=== PATIENT | male | born 1960 | race African-American/Black ===

== ENCOUNTER 2020-05-08 16:43 | Inpatient (IN) | payer OTHER ==
[2020-05-08 18:08] VITALS: BMI 25.8
[2020-05-08] MEDS ORDERED: IBUPROFEN 400 MG TABLET (FP) PO PRN (22:19)
[2020-05-08] MEDS ORDERED: P-EPHED 60MG/TRIPROLIDI 2.5MG TABLET PO PRN (22:19)
[2020-05-08] MEDS ORDERED: LOPERAMIDE HCL 2 MG CAPSULE PO PRN (22:19)
[2020-05-08] MEDS ORDERED: MENTHOL/PHENOL 1 EACH UD MM PRN (22:19)
[2020-05-08] MEDS ORDERED: MAGNESIUM CITRATE 300 ML BOTTLE PO PRN (22:19)
[2020-05-08] MEDS ORDERED: ACETAMINOPHEN 325 MG TABLET (FP) PO PRN (22:19)
[2020-05-08] MEDS ORDERED: NICOTINE POLACRILEX 2 MG GUM BC PRN (22:19)
[2020-05-08] MEDS ORDERED: guaiFENesin 200 MG/10 ML 10 ML UNIT-DOSE CUPS PO PRN (22:19)
[2020-05-08] MEDS ORDERED: MAGNESIUM HYDROX 2400MG/30ML ORAL SUSPENSION 30 ML CUP PO PRN (22:19)
[2020-05-08] MEDS ORDERED: MAG HYDROX/AL HYDROX/SIMETH 30 ML UNIT-DOSE CUP PO PRN (22:19)
[2020-05-08] MEDS ORDERED: TUBERCULIN PPD 5 TU/0.1ML VIAL ID ONE (23:41)
[2020-05-08] MEDS: hydrOXYzine PAMOATE 25 MG CAPSULE (FP) PO PRN (23:44)
[2020-05-08] MEDS: SULFAMETHOXAZOLE/TRIMETHOPRIM 800MG/160MG D.S. TABLET PO SCH (23:44)
[2020-05-08] MEDS: MELATONIN 5 MG TABLETS PO SCH (23:44)
[2020-05-09] MEDS: hydrOXYzine PAMOATE 25 MG CAPSULE (FP) PO PRN (09:48)
[2020-05-09] MEDS: SULFAMETHOXAZOLE/TRIMETHOPRIM 800MG/160MG D.S. TABLET PO SCH ×2 (09:48→22:02)
[2020-05-09] MEDS: PRENATAL VITAMINS W/ FOLIC ACID TABLET (FP) PO SCH (09:49)
[2020-05-09 10:19] LABS: POTASSIUM 3.9 mmol/L (3.5-5.1)
[2020-05-09 10:22] LABS: CALCIUM 9.3 mg/dL (8.5-10.1)
[2020-05-09 10:23] LABS: ALBUMIN 3.2 g/dl (3.4-5.0)
[2020-05-09 10:27] LABS: BILIRUBIN,TOTAL 0.6 mg/dL (0.2-1)
[2020-05-09 10:33] LABS: HEMATOCRIT 35.2 % (35.4-49); HEMOGLOBIN 11.5 GM/dL (11.7-16.9); MCH 29.6 pg (25.7-33.7); MCHC 32.7 g/dl (32.0-35.9); MEAN CELL VOLUME 90.5 fl (80-96); MEAN PLT VOLUME 8.4 fl (7.5-11.1); PLATELET COUNT 251 K/MM3 (134-434); RBC 3.89 M/mm3 (4.00-5.60); RDW 13.1 % (11.9-15.9)
[2020-05-09 11:26] LABS: SICKLE CELL SCREEN NEGATIVE (NEGATIVE)
[2020-05-09] MEDS: hydrOXYzine PAMOATE 50 MG CAPSULE (FP) PO PRN ×2 (12:26→22:02)
[2020-05-09] MEDS: SERTRALINE HCL 50 MG TABLET (FP) PO SCH (12:26)
[2020-05-09] MEDS: THIAMINE HCL 100 MG TABLET (FP) PO SCH (22:02)
[2020-05-09] MEDS: risperiDONE 1 MG TABLET PO SCH (22:03)
[2020-05-09] MEDS: MELATONIN 5 MG TABLETS PO SCH (22:04)
[2020-05-10] MEDS ORDERED: cloNIDine HCL 0.1 MG TABLET PO ONE (06:54)
[2020-05-10] MEDS: SULFAMETHOXAZOLE/TRIMETHOPRIM 800MG/160MG D.S. TABLET PO SCH ×2 (09:45→21:19)
[2020-05-10] MEDS: PRENATAL VITAMINS W/ FOLIC ACID TABLET (FP) PO SCH (09:46)
[2020-05-10] MEDS: SERTRALINE HCL 50 MG TABLET (FP) PO SCH (09:46)
[2020-05-10] MEDS: ASPIRIN COATED 81 MG TABLET.EC PO SCH (14:26)
[2020-05-10] MEDS: HYDROCHLOROTHIAZIDE 25 MG TABLET (FP) PO SCH (14:26)
[2020-05-10] MEDS: hydrOXYzine PAMOATE 50 MG CAPSULE (FP) PO PRN ×2 (14:26→21:19)
[2020-05-10 16:45] LABS: EPI CELLS 25 /uL (0-25.1); HYALINE CASTS 1 /uL (0-3.1); URINE APPEARANCE CLOUDY; URINE BACTERIA 11 /uL (0-1359); URINE BILIRUBIN NEGATIVE (NEGATIVE); URINE COLOR YELLOW; URINE GLUCOSE (UA) NEGATIVE (NEGATIVE); URINE KETONE NEGATIVE (NEGATIVE); URINE LEUK ESTERASE TRACE (NEGATIVE); URINE NITRITE NEGATIVE (NEGATIVE); URINE PROTEIN NEGATIVE (NEGATIVE); URINE RBC 8 /uL (0-23.9); URINE WBC 29 /uL (0-25.8)
[2020-05-10] MEDS: METOPROLOL TARTRATE 25 MG TABLET (FP) PO SCH (21:19)
[2020-05-10] MEDS: THIAMINE HCL 100 MG TABLET (FP) PO SCH (21:19)
[2020-05-10] MEDS: risperiDONE 1 MG TABLET PO SCH (21:19)
[2020-05-10] MEDS: MELATONIN 5 MG TABLETS PO SCH (21:19)
[2020-05-10] MEDS: ATORVASTATIN CA 20 MG TABLET (FP) PO SCH (21:20)
[2020-05-11] MEDS: ASPIRIN COATED 81 MG TABLET.EC PO SCH (09:50)
[2020-05-11] MEDS: HYDROCHLOROTHIAZIDE 25 MG TABLET (FP) PO SCH (09:50)
[2020-05-11] MEDS: SERTRALINE HCL 50 MG TABLET (FP) PO SCH (09:50)
[2020-05-11] MEDS: METOPROLOL TARTRATE 25 MG TABLET (FP) PO SCH ×2 (09:50→21:37)
[2020-05-11] MEDS: SULFAMETHOXAZOLE/TRIMETHOPRIM 800MG/160MG D.S. TABLET PO SCH ×2 (09:50→21:37)
[2020-05-11] MEDS: PRENATAL VITAMINS W/ FOLIC ACID TABLET (FP) PO SCH (09:50)
[2020-05-11] MEDS: risperiDONE 1 MG TABLET PO SCH (21:37)
[2020-05-11] MEDS: MELATONIN 5 MG TABLETS PO SCH (21:37)
[2020-05-11] MEDS: ATORVASTATIN CA 20 MG TABLET (FP) PO SCH (21:37)
[2020-05-11] MEDS: THIAMINE HCL 100 MG TABLET (FP) PO SCH (21:37)
[2020-05-12] MEDS: SULFAMETHOXAZOLE/TRIMETHOPRIM 800MG/160MG D.S. TABLET PO SCH ×2 (09:41→21:17)
[2020-05-12] MEDS: METOPROLOL TARTRATE 25 MG TABLET (FP) PO SCH ×2 (09:42→21:18)
[2020-05-12] MEDS: HYDROCHLOROTHIAZIDE 25 MG TABLET (FP) PO SCH (09:42)
[2020-05-12] MEDS: PRENATAL VITAMINS W/ FOLIC ACID TABLET (FP) PO SCH (09:42)
[2020-05-12] MEDS: ASPIRIN COATED 81 MG TABLET.EC PO SCH (09:42)
[2020-05-12] MEDS: SERTRALINE HCL 50 MG TABLET (FP) PO SCH (09:42)
[2020-05-12] MEDS: risperiDONE 1 MG TABLET PO SCH (21:17)
[2020-05-12] MEDS: MELATONIN 5 MG TABLETS PO SCH (21:17)
[2020-05-12] MEDS: THIAMINE HCL 100 MG TABLET (FP) PO SCH (21:17)
[2020-05-12] MEDS: ATORVASTATIN CA 20 MG TABLET (FP) PO SCH (21:17)
[2020-05-13] MEDS: PRENATAL VITAMINS W/ FOLIC ACID TABLET (FP) PO SCH (09:37)
[2020-05-13] MEDS: METOPROLOL TARTRATE 25 MG TABLET (FP) PO SCH ×2 (09:38→22:19)
[2020-05-13] MEDS: SERTRALINE HCL 50 MG TABLET (FP) PO SCH (09:38)
[2020-05-13] MEDS: HYDROCHLOROTHIAZIDE 25 MG TABLET (FP) PO SCH (09:38)
[2020-05-13] MEDS: ASPIRIN COATED 81 MG TABLET.EC PO SCH (09:38)
[2020-05-13] MEDS: SULFAMETHOXAZOLE/TRIMETHOPRIM 800MG/160MG D.S. TABLET PO SCH ×2 (09:38→22:19)
[2020-05-13] MEDS: ATORVASTATIN CA 20 MG TABLET (FP) PO SCH (22:19)
[2020-05-13] MEDS: risperiDONE 1 MG TABLET PO SCH (22:19)
[2020-05-13] MEDS: MELATONIN 5 MG TABLETS PO SCH (22:20)
[2020-05-13] MEDS: THIAMINE HCL 100 MG TABLET (FP) PO SCH (22:20)
[2020-05-14] MEDS: ASPIRIN COATED 81 MG TABLET.EC PO SCH (09:54)
[2020-05-14] MEDS: METOPROLOL TARTRATE 25 MG TABLET (FP) PO SCH ×2 (09:54→21:21)
[2020-05-14] MEDS: HYDROCHLOROTHIAZIDE 25 MG TABLET (FP) PO SCH (09:54)
[2020-05-14] MEDS: PRENATAL VITAMINS W/ FOLIC ACID TABLET (FP) PO SCH (09:54)
[2020-05-14] MEDS: SULFAMETHOXAZOLE/TRIMETHOPRIM 800MG/160MG D.S. TABLET PO SCH ×2 (09:56→21:23)
[2020-05-14] MEDS: SERTRALINE HCL 50 MG TABLET (FP) PO SCH (09:56)
[2020-05-14] MEDS: ATORVASTATIN CA 20 MG TABLET (FP) PO SCH (21:21)
[2020-05-14] MEDS: MELATONIN 5 MG TABLETS PO SCH (21:21)
[2020-05-14] MEDS: risperiDONE 1 MG TABLET PO SCH (21:21)
[2020-05-14] MEDS: THIAMINE HCL 100 MG TABLET (FP) PO SCH (21:21)
[2020-05-15] MEDS: ASPIRIN COATED 81 MG TABLET.EC PO SCH (09:52)
[2020-05-15] MEDS: PRENATAL VITAMINS W/ FOLIC ACID TABLET (FP) PO SCH (09:52)
[2020-05-15] MEDS: SULFAMETHOXAZOLE/TRIMETHOPRIM 800MG/160MG D.S. TABLET PO SCH ×2 (09:52→21:48)
[2020-05-15] MEDS: HYDROCHLOROTHIAZIDE 25 MG TABLET (FP) PO SCH (09:52)
[2020-05-15] MEDS: METOPROLOL TARTRATE 25 MG TABLET (FP) PO SCH ×2 (09:53→21:48)
[2020-05-15] MEDS: SERTRALINE HCL 50 MG TABLET (FP) PO SCH (09:53)
[2020-05-15] MEDS ORDERED: NAPROXEN 500 MG TABLET PO PRN (15:35)
[2020-05-15] MEDS: hydrOXYzine PAMOATE 50 MG CAPSULE (FP) PO PRN (21:48)
[2020-05-15] MEDS: ATORVASTATIN CA 20 MG TABLET (FP) PO SCH (21:48)
[2020-05-15] MEDS: MELATONIN 5 MG TABLETS PO SCH (21:48)
[2020-05-15] MEDS: risperiDONE 1 MG TABLET PO SCH (21:48)
[2020-05-15] MEDS: THIAMINE HCL 100 MG TABLET (FP) PO SCH (21:48)
[2020-05-15] MEDS: METHOCARBAMOL 500 MG TABLET PO PRN (21:48)
[2020-05-16] MEDS: SULFAMETHOXAZOLE/TRIMETHOPRIM 800MG/160MG D.S. TABLET PO SCH ×2 (09:34→21:35)
[2020-05-16] MEDS: HYDROCHLOROTHIAZIDE 25 MG TABLET (FP) PO SCH (09:34)
[2020-05-16] MEDS: ASPIRIN COATED 81 MG TABLET.EC PO SCH (09:34)
[2020-05-16] MEDS: METOPROLOL TARTRATE 25 MG TABLET (FP) PO SCH ×2 (09:35→21:36)
[2020-05-16] MEDS: PRENATAL VITAMINS W/ FOLIC ACID TABLET (FP) PO SCH (09:35)
[2020-05-16] MEDS: SERTRALINE HCL 50 MG TABLET (FP) PO SCH (09:35)
[2020-05-16] MEDS: risperiDONE 1 MG TABLET PO SCH (21:35)
[2020-05-16] MEDS: ATORVASTATIN CA 20 MG TABLET (FP) PO SCH (21:35)
[2020-05-16] MEDS: THIAMINE HCL 100 MG TABLET (FP) PO SCH (21:35)
[2020-05-16] MEDS: MELATONIN 5 MG TABLETS PO SCH (21:37)
[2020-05-17] MEDS: HYDROCHLOROTHIAZIDE 25 MG TABLET (FP) PO SCH (09:37)
[2020-05-17] MEDS: SULFAMETHOXAZOLE/TRIMETHOPRIM 800MG/160MG D.S. TABLET PO SCH ×2 (09:37→21:37)
[2020-05-17] MEDS: PRENATAL VITAMINS W/ FOLIC ACID TABLET (FP) PO SCH (09:37)
[2020-05-17] MEDS: ASPIRIN COATED 81 MG TABLET.EC PO SCH (09:37)
[2020-05-17] MEDS: SERTRALINE HCL 50 MG TABLET (FP) PO SCH (09:37)
[2020-05-17] MEDS: METOPROLOL TARTRATE 25 MG TABLET (FP) PO SCH ×2 (09:37→21:50)
[2020-05-17] MEDS: hydrOXYzine PAMOATE 50 MG CAPSULE (FP) PO PRN (21:37)
[2020-05-17] MEDS: ATORVASTATIN CA 20 MG TABLET (FP) PO SCH (21:37)
[2020-05-17] MEDS: MELATONIN 5 MG TABLETS PO SCH (21:37)
[2020-05-17] MEDS: risperiDONE 1 MG TABLET PO SCH (21:37)
[2020-05-17] MEDS: THIAMINE HCL 100 MG TABLET (FP) PO SCH (21:38)
[2020-05-18] MEDS: HYDROCHLOROTHIAZIDE 25 MG TABLET (FP) PO SCH (09:50)
[2020-05-18] MEDS: PRENATAL VITAMINS W/ FOLIC ACID TABLET (FP) PO SCH (09:50)
[2020-05-18] MEDS: ASPIRIN COATED 81 MG TABLET.EC PO SCH (09:50)
[2020-05-18] MEDS: METOPROLOL TARTRATE 25 MG TABLET (FP) PO SCH ×2 (09:50→21:57)
[2020-05-18] MEDS: SERTRALINE HCL 50 MG TABLET (FP) PO SCH (09:50)
[2020-05-18] MEDS: risperiDONE 1 MG TABLET PO SCH (21:57)
[2020-05-18] MEDS: ATORVASTATIN CA 20 MG TABLET (FP) PO SCH (21:57)
[2020-05-18] MEDS: THIAMINE HCL 100 MG TABLET (FP) PO SCH (21:57)
[2020-05-18] MEDS: hydrOXYzine PAMOATE 50 MG CAPSULE (FP) PO PRN (21:57)
[2020-05-18] MEDS: MELATONIN 5 MG TABLETS PO SCH (21:57)
[2020-05-18] MEDS: METHOCARBAMOL 500 MG TABLET PO PRN (21:58)
[2020-05-19] MEDS: HYDROCHLOROTHIAZIDE 25 MG TABLET (FP) PO SCH (09:41)
[2020-05-19] MEDS: METOPROLOL TARTRATE 25 MG TABLET (FP) PO SCH ×2 (09:41→21:36)
[2020-05-19] MEDS: SERTRALINE HCL 50 MG TABLET (FP) PO SCH (09:41)
[2020-05-19] MEDS: ASPIRIN COATED 81 MG TABLET.EC PO SCH (09:41)
[2020-05-19] MEDS: PRENATAL VITAMINS W/ FOLIC ACID TABLET (FP) PO SCH (09:41)
[2020-05-19] MEDS: ATORVASTATIN CA 20 MG TABLET (FP) PO SCH (21:35)
[2020-05-19] MEDS: risperiDONE 1 MG TABLET PO SCH (21:35)
[2020-05-19] MEDS: THIAMINE HCL 100 MG TABLET (FP) PO SCH (21:35)
[2020-05-19] MEDS: MELATONIN 5 MG TABLETS PO SCH (21:35)
[2020-05-19] MEDS: hydrOXYzine PAMOATE 50 MG CAPSULE (FP) PO PRN (21:37)
[2020-05-20] MEDS: ASPIRIN COATED 81 MG TABLET.EC PO SCH (09:44)
[2020-05-20] MEDS: PRENATAL VITAMINS W/ FOLIC ACID TABLET (FP) PO SCH (09:45)
[2020-05-20] MEDS: METOPROLOL TARTRATE 25 MG TABLET (FP) PO SCH ×2 (09:45→21:32)
[2020-05-20] MEDS: HYDROCHLOROTHIAZIDE 25 MG TABLET (FP) PO SCH (09:45)
[2020-05-20] MEDS: SERTRALINE HCL 50 MG TABLET (FP) PO SCH (09:45)
[2020-05-20] MEDS: MELATONIN 5 MG TABLETS PO SCH (21:32)
[2020-05-20] MEDS: ATORVASTATIN CA 20 MG TABLET (FP) PO SCH (21:32)
[2020-05-20] MEDS: METHOCARBAMOL 500 MG TABLET PO PRN (21:32)
[2020-05-20] MEDS: hydrOXYzine PAMOATE 50 MG CAPSULE (FP) PO PRN (21:32)
[2020-05-20] MEDS: risperiDONE 1 MG TABLET PO SCH (21:32)
[2020-05-20] MEDS: THIAMINE HCL 100 MG TABLET (FP) PO SCH (21:32)
[2020-05-21 07:30] VITALS: TEMP 97.3
[2020-05-21] MEDS: METOPROLOL TARTRATE 25 MG TABLET (FP) PO SCH ×2 (09:39→21:16)
[2020-05-21] MEDS: PRENATAL VITAMINS W/ FOLIC ACID TABLET (FP) PO SCH (09:39)
[2020-05-21] MEDS: HYDROCHLOROTHIAZIDE 25 MG TABLET (FP) PO SCH (09:39)
[2020-05-21] MEDS: ASPIRIN COATED 81 MG TABLET.EC PO SCH (09:39)
[2020-05-21] MEDS: SERTRALINE HCL 50 MG TABLET (FP) PO SCH (09:39)
[2020-05-21] MEDS: MELATONIN 5 MG TABLETS PO SCH (21:16)
[2020-05-21] MEDS: THIAMINE HCL 100 MG TABLET (FP) PO SCH (21:16)
[2020-05-21] MEDS: risperiDONE 1 MG TABLET PO SCH (21:16)
[2020-05-21] MEDS: hydrOXYzine PAMOATE 50 MG CAPSULE (FP) PO PRN (21:16)
[2020-05-21] MEDS: ATORVASTATIN CA 20 MG TABLET (FP) PO SCH (21:16)
[2020-05-22 06:44] VITALS: BP 161/104; PULSE 57
[2020-05-22] MEDS: METOPROLOL TARTRATE 25 MG TABLET (FP) PO SCH (09:51)
[2020-05-22] MEDS: HYDROCHLOROTHIAZIDE 25 MG TABLET (FP) PO SCH (09:52)
[2020-05-22] MEDS: SERTRALINE HCL 50 MG TABLET (FP) PO SCH (09:52)
[2020-05-22] MEDS: PRENATAL VITAMINS W/ FOLIC ACID TABLET (FP) PO SCH (09:52)
[2020-05-22] MEDS: ASPIRIN COATED 81 MG TABLET.EC PO SCH (09:52)
== END 2020-05-22 10:00 | disposition home or self-care (01) | DRG 772 ==
LOC: YASAS 16:43 → Y5N 22:39
PROVIDERS: ADMIT Allergy & Immunology; ATTEND Allergy & Immunology
PROC: HZ42ZZZ Group Counseling for Substance Abuse Treatment, Cognitive-Behavioral (ICD-10-PCS; principal; 2020-05-08)
DX: F10.20 Alcohol dependence, uncomplicated (principal); F14.20 Cocaine dependence, uncomplicated; F16.10 Hallucinogen abuse, uncomplicated; F12.20 Cannabis dependence, uncomplicated; F17.210 Nicotine dependence, cigarettes, uncomplicated; F33.1 Major depressive disorder, recurrent, moderate; F19.280 Other psychoactive substance dependence with psychoactive substance-induced anxiety disorder; F19.282 Other psychoactive substance dependence with psychoactive substance-induced sleep disorder; F19.24 Other psychoactive substance dependence with psychoactive substance-induced mood disorder; F41.9 Anxiety disorder, unspecified; F43.10 Post-traumatic stress disorder, unspecified; I10 Essential (primary) hypertension; E78.5 Hyperlipidemia, unspecified; M47.819 Spondylosis without myelopathy or radiculopathy, site unspecified; M54.5 Low back pain; G89.29 Other chronic pain; Z62.810 Personal history of physical and sexual abuse in childhood
CPT/HCPCS: 36415; 71046-TC-FY; 80053; 81003; 82962; 85027; 85660; 86780; 93005; 93010; C9803; J0735; J2794; U0003

== ENCOUNTER 2021-04-25 21:59 | Inpatient (IN) | payer OTHER ==
[2021-04-25 22:49] VITALS: BMI 24.7
[2021-04-25] MEDS ORDERED: ACETAMINOPHEN 325 MG TABLET (FP) PO PRN ×2 (23:36)
[2021-04-25] MEDS ORDERED: MAGNESIUM HYDROX 2400MG/30ML ORAL SUSPENSION 30 ML CUP PO PRN (23:36)
[2021-04-25] MEDS ORDERED: DICYCLOMINE HCL 10 MG CAPSULE PO PRN (23:36)
[2021-04-25] MEDS ORDERED: BISMUTH SUBSALICYLATE 524 MG/30 ML PO PRN (23:36)
[2021-04-25] MEDS ORDERED: MENTHOL/PHENOL 1 EACH UD MM PRN (23:36)
[2021-04-25] MEDS ORDERED: MAGNESIUM CITRATE 300 ML BOTTLE PO PRN (23:36)
[2021-04-25] MEDS ORDERED: IBUPROFEN 400 MG TABLET (FP) PO PRN (23:36)
[2021-04-25] MEDS ORDERED: MAG HYDROX/AL HYDROX/SIMETH 30 ML UNIT-DOSE CUP PO PRN (23:36)
[2021-04-25] MEDS ORDERED: P-EPHED 60MG/TRIPROLIDI 2.5MG TABLET PO PRN (23:36)
[2021-04-25] MEDS ORDERED: ONDANSETRON *ODT* 4 MG TABLET SL PRN (23:36)
[2021-04-25] MEDS ORDERED: guaiFENesin 200 MG/10 ML 10 ML UNIT-DOSE CUPS PO PRN (23:36)
[2021-04-25] MEDS ORDERED: METHOCARBAMOL 500 MG TABLET PO PRN (23:36)
[2021-04-25] MEDS ORDERED: NICOTINE 10 MG CARTRIDGE (INHALER) IH PRN (23:36)
[2021-04-26] MEDS ORDERED: MELATONIN 5 MG TABLETS PO ONE (00:35)
[2021-04-26] MEDS ORDERED: diazePAM 5 MG TABLET PO PRN (09:01)
[2021-04-26] MEDS ORDERED: amLODIPine BESYLATE 5 MG TABLET (FP) ONE (10:20)
[2021-04-26] MEDS ORDERED: diazePAM 5 MG TABLET ONE (10:20)
[2021-04-26] MEDS: METOPROLOL TARTRATE 25 MG TABLET (FP) PO SCH ×2 (10:27→22:24)
[2021-04-26] MEDS: PANTOPRAZOLE 20 MG TABLET PO SCH (10:27)
[2021-04-26] MEDS: HYDROCHLOROTHIAZIDE 25 MG TABLET (FP) PO SCH (10:27)
[2021-04-26] MEDS: amLODIPine BESYLATE 5 MG TABLET (FP) PO SCH (10:27)
[2021-04-26] MEDS: ASPIRIN COATED 81 MG TABLET.EC PO SCH (10:27)
[2021-04-26] MEDS: PRENATAL VITAMINS W/ FOLIC ACID TABLET (FP) PO SCH (10:27)
[2021-04-26] MEDS: diazePAM 5 MG TABLET PO SCH ×3 (10:31→22:25)
[2021-04-26 11:15] LABS: HEMATOCRIT 36.2 % (35.4-49); HEMOGLOBIN 12.2 GM/dL (11.7-16.9); MCH 30.4 pg (25.7-33.7); MCHC 33.7 g/dl (32.0-35.9); MEAN PLT VOLUME 8.2 fl (7.5-11.1); PLATELET COUNT 218 10^3/uL (134-434); RBC 4.02 M/mm3 (4.00-5.60); RDW 13.7 % (11.9-15.9); WHITE BLOOD COUNT 4.3 K/mm3 (4.0-10.0)
[2021-04-26 11:16] LABS: ALBUMIN 3.2 g/dl (3.4-5.0); BLOOD UREA NITROGEN 23.6 mg/dL (7-18)
[2021-04-26 11:19] LABS: CREATININE 1.3 mg/dL (0.55-1.3)
[2021-04-26 11:21] LABS: BILIRUBIN,TOTAL 0.9 mg/dL (0.2-1); TOT PROT 6.4 g/dl (6.4-8.2)
[2021-04-26] MEDS: NICOTINE 14 MG/24 HOURS TOPICAL PATCH TD SCH (11:54)
[2021-04-26] MEDS: hydrOXYzine PAMOATE 25 MG CAPSULE (FP) PO PRN (22:24)
[2021-04-26] MEDS: risperiDONE 1 MG TABLET PO SCH (22:24)
[2021-04-26] MEDS: ATORVASTATIN CA 20 MG TABLET (FP) PO SCH (22:24)
[2021-04-26] MEDS: THIAMINE HCL 100 MG TABLET (FP) PO SCH (22:24)
[2021-04-26] MEDS: MELATONIN 5 MG TABLETS PO SCH (22:24)
[2021-04-27] MEDS: SUCRALFATE 1 GM TABLET (FP) PO SCH ×5 (00:15→22:11)
[2021-04-27] MEDS: diazePAM 5 MG TABLET PO SCH ×4 (07:27→22:11)
[2021-04-27] MEDS: amLODIPine BESYLATE 5 MG TABLET (FP) PO SCH (10:53)
[2021-04-27] MEDS: PRENATAL VITAMINS W/ FOLIC ACID TABLET (FP) PO SCH (10:53)
[2021-04-27] MEDS: METOPROLOL TARTRATE 25 MG TABLET (FP) PO SCH ×2 (10:53→22:11)
[2021-04-27] MEDS: PANTOPRAZOLE 20 MG TABLET PO SCH (10:53)
[2021-04-27] MEDS: HYDROCHLOROTHIAZIDE 25 MG TABLET (FP) PO SCH (10:53)
[2021-04-27] MEDS: ASPIRIN COATED 81 MG TABLET.EC PO SCH (10:53)
[2021-04-27] MEDS: NICOTINE 14 MG/24 HOURS TOPICAL PATCH TD SCH (11:11)
[2021-04-27] MEDS: SERTRALINE HCL 50 MG TABLET (FP) PO SCH (11:12)
[2021-04-27] MEDS: MELATONIN 5 MG TABLETS PO SCH (22:11)
[2021-04-27] MEDS: THIAMINE HCL 100 MG TABLET (FP) PO SCH (22:11)
[2021-04-27] MEDS: risperiDONE 1 MG TABLET PO SCH (22:11)
[2021-04-27] MEDS: ATORVASTATIN CA 20 MG TABLET (FP) PO SCH (22:11)
[2021-04-28] MEDS: diazePAM 5 MG TABLET PO SCH ×3 (05:35→22:07)
[2021-04-28] MEDS: ASPIRIN COATED 81 MG TABLET.EC PO SCH (10:19)
[2021-04-28] MEDS: SUCRALFATE 1 GM TABLET (FP) PO SCH ×4 (10:19→22:07)
[2021-04-28] MEDS: PANTOPRAZOLE 20 MG TABLET PO SCH (10:19)
[2021-04-28] MEDS: NICOTINE 14 MG/24 HOURS TOPICAL PATCH TD SCH (10:19)
[2021-04-28] MEDS: PRENATAL VITAMINS W/ FOLIC ACID TABLET (FP) PO SCH (10:19)
[2021-04-28] MEDS: METOPROLOL TARTRATE 25 MG TABLET (FP) PO SCH ×2 (10:19→22:07)
[2021-04-28] MEDS: SERTRALINE HCL 50 MG TABLET (FP) PO SCH (10:19)
[2021-04-28] MEDS: amLODIPine BESYLATE 5 MG TABLET (FP) PO SCH (10:19)
[2021-04-28] MEDS: HYDROCHLOROTHIAZIDE 25 MG TABLET (FP) PO SCH (10:19)
[2021-04-28] MEDS: MELATONIN 5 MG TABLETS PO SCH (22:06)
[2021-04-28] MEDS: ATORVASTATIN CA 20 MG TABLET (FP) PO SCH (22:07)
[2021-04-28] MEDS: risperiDONE 1 MG TABLET PO SCH (22:07)
[2021-04-28] MEDS: THIAMINE HCL 100 MG TABLET (FP) PO SCH (22:07)
[2021-04-29] MEDS: diazePAM 5 MG TABLET PO SCH ×2 (05:59→17:57)
[2021-04-29] MEDS: ASPIRIN COATED 81 MG TABLET.EC PO SCH (10:16)
[2021-04-29] MEDS: PRENATAL VITAMINS W/ FOLIC ACID TABLET (FP) PO SCH (10:16)
[2021-04-29] MEDS: METOPROLOL TARTRATE 25 MG TABLET (FP) PO SCH ×2 (10:16→22:31)
[2021-04-29] MEDS: SERTRALINE HCL 50 MG TABLET (FP) PO SCH (10:16)
[2021-04-29] MEDS: SUCRALFATE 1 GM TABLET (FP) PO SCH ×4 (10:16→22:30)
[2021-04-29] MEDS: HYDROCHLOROTHIAZIDE 25 MG TABLET (FP) PO SCH (10:16)
[2021-04-29] MEDS: PANTOPRAZOLE 20 MG TABLET PO SCH (10:16)
[2021-04-29] MEDS: amLODIPine BESYLATE 5 MG TABLET (FP) PO SCH (10:16)
[2021-04-29] MEDS: NICOTINE 14 MG/24 HOURS TOPICAL PATCH TD SCH (10:17)
[2021-04-29] MEDS: hydrOXYzine PAMOATE 25 MG CAPSULE (FP) PO PRN (17:56)
[2021-04-29] MEDS: risperiDONE 1 MG TABLET PO SCH (22:30)
[2021-04-29] MEDS: ATORVASTATIN CA 20 MG TABLET (FP) PO SCH (22:30)
[2021-04-29] MEDS: MELATONIN 5 MG TABLETS PO SCH (22:30)
[2021-04-29] MEDS: THIAMINE HCL 100 MG TABLET (FP) PO SCH (22:30)
[2021-04-30] MEDS ORDERED: diazePAM 5 MG TABLET PO ONE (06:00)
[2021-04-30] MEDS: NICOTINE 14 MG/24 HOURS TOPICAL PATCH TD SCH (10:10)
[2021-04-30] MEDS: PANTOPRAZOLE 20 MG TABLET PO SCH (10:11)
[2021-04-30] MEDS: HYDROCHLOROTHIAZIDE 25 MG TABLET (FP) PO SCH (10:11)
[2021-04-30] MEDS: PRENATAL VITAMINS W/ FOLIC ACID TABLET (FP) PO SCH (10:12)
[2021-04-30] MEDS: SERTRALINE HCL 50 MG TABLET (FP) PO SCH (10:12)
[2021-04-30] MEDS: ASPIRIN COATED 81 MG TABLET.EC PO SCH (10:12)
[2021-04-30] MEDS: METOPROLOL TARTRATE 25 MG TABLET (FP) PO SCH ×2 (10:12→22:55)
[2021-04-30] MEDS: SUCRALFATE 1 GM TABLET (FP) PO SCH ×4 (10:12→22:55)
[2021-04-30] MEDS: amLODIPine BESYLATE 5 MG TABLET (FP) PO SCH (10:12)
[2021-04-30] MEDS: risperiDONE 1 MG TABLET PO SCH (22:54)
[2021-04-30] MEDS: ATORVASTATIN CA 20 MG TABLET (FP) PO SCH (22:55)
[2021-04-30] MEDS: THIAMINE HCL 100 MG TABLET (FP) PO SCH (22:55)
[2021-04-30] MEDS: MELATONIN 5 MG TABLETS PO SCH (22:56)
[2021-05-01] MEDS: NICOTINE 14 MG/24 HOURS TOPICAL PATCH TD SCH (10:03)
[2021-05-01] MEDS: METOPROLOL TARTRATE 25 MG TABLET (FP) PO SCH ×2 (10:03→22:00)
[2021-05-01] MEDS: SUCRALFATE 1 GM TABLET (FP) PO SCH ×4 (10:03→22:01)
[2021-05-01] MEDS: amLODIPine BESYLATE 5 MG TABLET (FP) PO SCH (10:03)
[2021-05-01] MEDS: PANTOPRAZOLE 20 MG TABLET PO SCH (10:03)
[2021-05-01] MEDS: SERTRALINE HCL 50 MG TABLET (FP) PO SCH (10:03)
[2021-05-01] MEDS: ASPIRIN COATED 81 MG TABLET.EC PO SCH (10:03)
[2021-05-01] MEDS: PRENATAL VITAMINS W/ FOLIC ACID TABLET (FP) PO SCH (10:04)
[2021-05-01] MEDS: HYDROCHLOROTHIAZIDE 25 MG TABLET (FP) PO SCH (10:04)
[2021-05-01] MEDS: MELATONIN 5 MG TABLETS PO SCH (22:00)
[2021-05-01] MEDS: risperiDONE 1 MG TABLET PO SCH (22:00)
[2021-05-01] MEDS: ATORVASTATIN CA 20 MG TABLET (FP) PO SCH (22:01)
[2021-05-01] MEDS: THIAMINE HCL 100 MG TABLET (FP) PO SCH (22:01)
[2021-05-02 09:31] VITALS: BP 130/86; PULSE 68; TEMP 96.9
[2021-05-02] MEDS: SERTRALINE HCL 50 MG TABLET (FP) PO SCH (11:09)
[2021-05-02] MEDS: PANTOPRAZOLE 20 MG TABLET PO SCH (11:10)
[2021-05-02] MEDS: PRENATAL VITAMINS W/ FOLIC ACID TABLET (FP) PO SCH (11:10)
[2021-05-02] MEDS: amLODIPine BESYLATE 5 MG TABLET (FP) PO SCH (11:10)
[2021-05-02] MEDS: METOPROLOL TARTRATE 25 MG TABLET (FP) PO SCH (11:10)
[2021-05-02] MEDS: ASPIRIN COATED 81 MG TABLET.EC PO SCH (11:10)
[2021-05-02] MEDS: SUCRALFATE 1 GM TABLET (FP) PO SCH ×2 (11:10→13:03)
[2021-05-02] MEDS: NICOTINE 14 MG/24 HOURS TOPICAL PATCH TD SCH (11:10)
[2021-05-02] MEDS: HYDROCHLOROTHIAZIDE 25 MG TABLET (FP) PO SCH (11:11)
== END 2021-05-02 12:39 | disposition home or self-care (01) | DRG 774 ==
LOC: YASAS 21:59 → Y3N 04-26 10:25
PROVIDERS: ADMIT Allergy & Immunology; ATTEND Allergy & Immunology
PROC: HZ2ZZZZ Detoxification Services for Substance Abuse Treatment (ICD-10-PCS; principal; 2021-04-26)
DX: F10.230 Alcohol dependence with withdrawal, uncomplicated (principal); F14.20 Cocaine dependence, uncomplicated; F12.20 Cannabis dependence, uncomplicated; F17.210 Nicotine dependence, cigarettes, uncomplicated; F19.24 Other psychoactive substance dependence with psychoactive substance-induced mood disorder; F19.280 Other psychoactive substance dependence with psychoactive substance-induced anxiety disorder; F19.282 Other psychoactive substance dependence with psychoactive substance-induced sleep disorder; F43.10 Post-traumatic stress disorder, unspecified; I10 Essential (primary) hypertension; E78.5 Hyperlipidemia, unspecified; G47.00 Insomnia, unspecified; M54.9 Dorsalgia, unspecified; G89.29 Other chronic pain; M19.90 Unspecified osteoarthritis, unspecified site; Z20.822 Contact with and (suspected) exposure to COVID-19; Z63.4 Disappearance and death of family member; Z56.0 Unemployment, unspecified; Z59.01 Sheltered homelessness
CPT/HCPCS: 36415; 80053; 85027; 86780; 93005; 93010; C9803; J2794; U0003; U0005